=== PATIENT | male | born 1945 | race Two or more races ===

== ENCOUNTER 2020-07-15 08:00 | Outpatient (CLI) | payer OTHER ==
[2020-07-17] MEDS ORDERED: SYNTHROID50 MCG PO (09:16)
[2020-07-17] MEDS ORDERED: LOTREL 5-10 MG1 CAP PO ×2 (09:16)
== END 2020-07-15 15:00 | disposition home or self-care (01) ==
LOC: LAB 08:00
PROVIDERS: ATTEND Urology
DX: Z20.828 Contact with and (suspected) exposure to other viral communicable diseases (principal)

== ENCOUNTER 2020-07-22 08:41 | Day surgery (SDC) | payer OTHER ==
[~2020-07-22 08:41] MED LIST: LOTREL 5-10 MG1 CAP PO; SYNTHROID50 MCG PO
== END 2020-07-23 08:00 | disposition home or self-care (01) ==
LOC: CIR.AMB 08:41 → SURH 17:27 → CIR.AMB 17:27 → O/R 17:27 → CIR.AMB 07-23 08:00 → SURH 07-23 10:24 → O/R 07-23 10:24
PROVIDERS: ATTEND Urology
DX: C67.3 Malignant neoplasm of anterior wall of bladder (principal); R31.0 Gross hematuria

== ENCOUNTER 2020-09-09 06:00 | Day surgery (SDC) | payer OTHER | END 2020-09-09 11:40 | disposition home or self-care (01) | LOC: CIR.AMB 06:00 | PROVIDERS: ATTEND Urology | DX: C67.2 Malignant neoplasm of lateral wall of bladder (principal); C67.3 Malignant neoplasm of anterior wall of bladder; Z20.828 Contact with and (suspected) exposure to other viral communicable diseases ==

== ENCOUNTER 2021-03-17 06:40 | Day surgery (SDC) | payer OTHER | END 2021-03-17 16:35 | disposition home or self-care (01) | LOC: CIR.AMB 06:40 | PROVIDERS: ATTEND Urology | DX: C67.3 Malignant neoplasm of anterior wall of bladder (principal); Z20.822 Contact with and (suspected) exposure to COVID-19 ==

== ENCOUNTER 2022-06-17 09:39 | Outpatient (CLI) | payer OTHER | END 2022-06-17 09:49 | disposition home or self-care (01) | LOC: PPH VACUNA 09:39 | PROVIDERS: ATTEND Emergency Medicine Pediatric Emergency Medicine | DX: Z23 Encounter for immunization (principal) ==

== ENCOUNTER 2025-08-08 12:13 | Outpatient (CLI) | payer OTHER | END 2025-08-08 12:19 | disposition home or self-care (01) | LOC: RAD 12:13 | PROVIDERS: ATTEND Orthopaedic Surgery | DX: M25.551 Pain in right hip (principal); M25.552 Pain in left hip ==

== ENCOUNTER 2025-08-13 07:09 | Outpatient (CLI) | payer OTHER ==
[2025-08-13 08:16] LABS: BASO % 1.0 % (0.1-1.2); EOS # 0.32 (0.04-0.54); EOS % 4.1 % (0.7-7.0); LYMPH # 1.90 (1.18-3.74); LYMPH % 24.5 % (19.3-53.1); MEAN PLATELET VOLUME 9.10 fl (9.4-12.4); MONO # 0.79 (0.24-0.82); MONO % 10.2 % (4.7-12.5); NEUT # 4.65 (1.56-6.13); NEUT % 59.9 % (34.0-71.1); RED CELL DISTRIBUTION WIDTH 12.9 % (11.6-14.4)
[2025-08-13 08:30] LABS: COL EPI 100 SECONDS (82-175)
[2025-08-13 08:36] LABS: URINE APPEARANCE Clear; URINE BILIRRUBIN Negative (NEGATIVE); URINE BLOOD Negative; URINE COLOR Yellow; URINE GLUCOSE Negative (NEGATIVE); URINE KETONE Negative (NEGATIVE); URINE LEUKOCYTE Negative; URINE NITRATE Negative; URINE PROTEIN Negative (NEGATIVE); URINE UROBILINOGEN 0.2 E.U./dl
[2025-08-13 08:37] LABS: URINE EPITHELIAL CELLS 1.5 uL (0.0-38.8); URINE RBC 8.3 uL (0.0-20.8); URINE WBC 1.9 uL (0.0-23.2)
[2025-08-13 08:39] LABS: URINE BACTERIA 1.1 uL (0.0-1933); URINE CAST 0.00 uL (0.0-1.40)
[2025-08-13 08:43] LABS: INR 0.99
[2025-08-13 08:48] LABS: ALT/SGPT 51.0 U/L (12-78); AST/SGOT 28.0 U/L (15-37); BILIRUBIN TOTAL 0.7 mg/dL (0.3-1.2); BUN CREA RATIO 22.0 (7.0-25.0); CREATININE SERUM 0.94 mg/dL (0.70-1.30); GFR 77.42; GLOBULINA 3.9 G/DL (2.4-3.5); GLUCOSE FASTING 101.0 mg/dL (65-100); OSMOLALITY SERUM 283.0 MOSM/KG (275-295)
== END 2025-08-13 07:19 | disposition home or self-care (01) ==
LOC: CIR.AMB 07:09 → RAD 07:09
PROVIDERS: ATTEND Orthopaedic Surgery
DX: D64.9 Anemia, unspecified (principal); E88.9 Metabolic disorder, unspecified; D68.8 Other specified coagulation defects; N39.0 Urinary tract infection, site not specified; Z22.322 Carrier or suspected carrier of Methicillin resistant Staphylococcus aureus; E11.9 Type 2 diabetes mellitus without complications; Z76.89 Persons encountering health services in other specified circumstances